=== PATIENT | female | born 1960 | race Caucasian/White ===

== ENCOUNTER 2016-03-02 07:55 | Emergency (ER) | payer OTHER ==
[~2016-03-02] VITALS: Ht 154.9 cm; Wt 54.4 kg
[~2016-03-02 07:55] MED LIST: AMITIZA24 MCG PO; AMITRIPTYLINE100 MG PO; ATORVASTATIN CA40 MG PO; BETHANECHOL CHL10 MG PO; BUSPIRONE10 MG PO; CIPRO 500MG TA500 MG PO; CROMOLYN SODIUM10 ML OPH; HYDROXYZINE HCL25 MG PO; MIRALAX17 GM PO; NEURONTIN300 MG PO; OSPHENA60 MG PO; PROTONIX 40MG T40 MG PO; TRAZODONE100 MG PO; TRAZODONE50 MG PO; ZOFRAN ODT4 MG PO
[2016-03-02 08:26] LABS: ABSOLUTE BASOPHIL COUNT 0 /CUMM (0.0-0.2); ABSOLUTE EOSINOPHIL COUNT 0 /CUMM (0.0-0.7); ABSOLUTE GRANULOCYTE CT 11.3 /CUMM (1.4-6.5); ABSOLUTE LYMPH COUNT 0.9 /CUMM (1.2-3.4); ABSOLUTE MONOCYTE COUNT 0.4 /CUMM (0.10-0.60); BASOPHIL % 0.2 % (0.0-2.0); EOSINOPHIL % 0.1 % (0-5); GRANULOCYTE % 89.5 % (42.2-75.2); HEMATOCRIT 36.5 % (37-47); MEAN CORPUSCULAR HGB 20.8 PG (27.0-31.0); MEAN CORPUSCULAR HGB CONC 31.5 G/DL (33.0-37.0); MEAN PLATELET VOLUME 8.1 FL (7.4-10.4); PLATELET COUNT 148 /CUMM (130-400); RBC DISTRIBUTION WIDTH 14.2 % (11.5-14.5); RED BLOOD CELL CT 5.52 /CUMM (4.20-5.40); WHITE BLOOD CELL COUNT 12.6 /CUMM (4.8-10.8)
--- NOTE | 2016-03-02 08:32 | ED AMS/SEIZURE/WEAK/DIZZY ---
History of Present Illness General Chief Complaint: Altered Mental Status Stated Complaint: ALTERED MENTAL STATUS PER FAMILY Source: patient Exam Limitations: no limitations Vital Signs & Intake/Output Vital Signs & Intake/Output Vital Signs Date Time Temp Pulse Resp B/P Pulse O2 O2 Flow FiO2 Ox Delivery Rate 03/02 1006 96 Room Air 03/02 1005 98.4 98 18 132/72 95 Room Air 03/02 0822 100.0 03/02 0806 94 Room Air 03/02 0800 100.0 107 18 143/69 94 Room Air Allergies Coded Allergies: NO KNOWN ALLERGIES (01/01/13) Reconcile Medications AMITRIPTYLINE HCL (Amitriptyline HCl) 100 MG TAB 1 TAB PO QPM ANXIETY/TOBIAS ( Reported) Atorvastatin Calcium (Lipitor) 40 MG TAB 1 TAB PO DAILY CHOLESTEROL (Reported ) Bethanechol Chloride 10 MG TAB 1 TAB PO QHS ESOPHAGUS (Reported) BUSPIRONE HCL (Buspirone HCl) 10 MG TAB 2 TAB PO TID MENTAL HEALTH (Reported) Clarithromycin (Biaxin) 250 MG TABLET 1 TAB PO BID PNA Cromolyn Sodium (Cromolyn Sodium 10 Ml) 10 ML ALBINA 1 GTT OPH BID ALLERGIES ( Reported) Gabapentin (Neurontin) 300 MG CAP 1 CAP PO BID MENTAL HEALTH (Reported) HYDROXYZINE HCL (Hydroxyzine HCl) 25 MG TAB 1 TAB PO BID PRN ANXIETY ( Reported) Lubiprostone (Amitiza) 24 MCG CAP 1 CAP PO BID CONSTIPATION (Reported) Ospemifene (Osphena) 60 MG TAB 1 TAB PO DAILY VAGINAL TISSUE (Reported) Pantoprazole Sodium (Protonix) 40 MG TAB 1 TAB PO BID GI (Reported) Polyethylene Glycol 3350 (Miralax) 17 GM PWD 17 GM PO DAILY GI (Reported) mix with water, juice, soda, coffee or tea TRAZODONE HCL (Trazodone HCl) 100 MG TAB 1 TAB PO QPM PRN SLEEP (Reported) TRAZODONE HCL (Trazodone HCl) 50 MG TAB 1 TAB PO QAM ANXIETY (Reported) Triage Note: 55 Y/O FEMALE BIBA FROM HOME FOR EVAL OF ALTERED MENTAL STATUS. PER EMS, STATED PT IS "BEING WORKED UP FOR DEMENTIA AND HAS MEMORY LOSS .. TODAY KNOCKED OVER A LAMP". PT ARRIVES ALERT AND ORIENTED X 3 - SPEAKING CLEARLY WITH NO DEFICITS NOTED. PT STATES "MY SAYS I KNOCKED OVER A LAMP, I DONT REMEMBER THAT". PT REPORTS RECENT "MEMORY LOSS AND I FORGET THINGS". ALSO C/O FEELING "TIRED, NO ENERGY". REPORTS DRY COUGH X WEEKS. REPORTS DECREASED APPETITE/PO INTAKE RECENTLY. DENIES PAIN. HX UTI'S BUT UNCLEAR IF SHE FEELS SIMLIAR TO WHEN SHE HAS HAD UTI'S IN THE PAST. TEMP 100.0. Triage Nurses Notes Reviewed? yes HPI: 55 yo female with hx of anxiety and currently being worked up for dementia. she woke feeling "weird", confused this am. having memory problems. hx of similar episodes, hallucinating. mild dysuria, burning with urination. no tx thus far. no weakness or numbness, no headaches, no vomiting, no aphasia. no modifying factors. She has a moderate cough with mild sputum production. She recently quit smoking. Past History Travel History Traveled to [place] past 21 day No Medical History Any Pertinent Medical History? 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 No Review of Systems Review of Systems Constitutional: Reports: see HPI. EENTM: Reports: no symptoms. Respiratory: Reports: see HPI. Cardiovascular: Reports: no symptoms. GI: Reports: no symptoms. Genitourinary: Reports: see HPI. Musculoskeletal: Reports: no symptoms. Skin: Reports: no symptoms. Neurological/Psychological: Reports: see HPI. Hematologic/Endocrine: Reports: no symptoms. Immunologic/Allergic: Reports: no symptoms. All Other Systems: Reviewed and Negative Physical Exam Physical Exam General Appearance: well developed/nourished Comments: Well-developed well-nourished person in no acute distress HEENT: Normal EENT exam, extraocular motion intact, no nystagmus. Pupils equally round and reactive to light. Nose is atraumatic. External auditory canal and Tympanic membranes clear. Pharynx normal. No swelling or edema. Neck: Supple, no lymphadenopathy, normal range of motion without pain or tenderness Back: Nontender, no CVA tenderness. Full range of motion Cardiovascular: Regular rate and rhythms no murmurs, normal JVP Respiratory: Chest nontender. No respiratory distress. Mild crackles and rhonchi noted to the right lower lung Abdomen: Soft, nontender nondistended, no appreciable organomegaly. Normal bowel sounds. No ascites Extremity: No edema, no calf tenderness to palpation, normal and equal pulses. Neuro: Alert oriented x3, motor sensory normal, cranial nerves II through XII grossly intact. Skin: No appreciable rash on exposed skin, skin is warm and dry. Psych: Mood and affect is normal, memory and judgment is normal. Core Measures ACS in differential dx? No CVA/TIA Diagnosis: No Severe Sepsis Present: No Septic Shock Present: No Progress Differential Diagnosis: arrythmia, alcohol intoxication, anemia, benign positional vertigo, CVA/stroke, dehydration, drug intoxication, encephalitis, electrolyte imbalance, GI bleed, hypoglycemia, hypoxia, intracranial Hem., intracranial mass/tumor, labrynthitis, meningitis, Meniere's disease, migraine TOBIAS, multiple sclerosis, pneumonia, postural hypotension, presyncope, post- traumatic vertigo, sepsis, seizure disorder, subarachnoid Hem., UTI/pyelo, vertebrobasilar insuff Plan of Care: Orders Procedure Date/time Status CULTURE,URINE 03/02 809 Active URINALYSIS 03/02 809 Complete COMPREHENSIVE METABOLIC PANEL 03/02 809 Complete CBC WITHOUT DIFFERENTIAL 03/02 809 Complete Laboratory Tests 03/02/16 0810: Anion Gap 12, Estimated GFR 57 L, BUN/Creatinine Ratio 17.0, Glucose 98, Calcium 9.4, Total Bilirubin 0.7, AST 21, ALT 31, Alkaline Phosphatase 68, Total Protein 6.6, Albumin 3.9, Globulin 2.7, Albumin/Globulin Ratio 1.4, CBC w Diff MAN DIFF ORDERED, RBC 5.52 H, MCV 66.0 L, MCH 20.8 L, RDW 14.2, MPV 8.1, Gran % 89.5 H, Lymphocytes % 7.2 L, Monocytes % 3.0, Eosinophils % 0.1, Basophils % 0.2, Absolute Granulocytes 11.3 H, Segmented Neutrophils 76 H, Band Neutrophils 10 H, Absolute Lymphocytes 0.9 L, Lymphocytes 9 L, Monocytes 4, Absolute Monocytes 0.4, Eosinophils 1, Absolute Eosinophils 0, Absolute Basophils 0, Platelet Estimate DECREASED, Hypochromic-Microcytic 1+, PUBS MCHC 31.5 L, Urine Color YEL, Urine Clarity HAZY H, Urine pH 6.0, Ur Specific [place] 1.020, Urine Protein TRACE H, Urine Ketones NEG, Urine Nitrite NEG, Urine Bilirubin NEG, Urine Urobilinogen 0.2, Ur Leukocyte Esterase SMALL H, Ur Microscopic SEDIMENT EXAMINED, Urine RBC 1-3, Urine WBC 1-3 H, Ur Epithelial Cells MOD H, Urine Hemoglobin NEG, Urine Glucose NEG Microbiology 03/02 809 URINE ROUT: Urine Culture - RECD Diagnostic Imaging: Viewed by Me: Radiology Read. Discussed w/RAD: Radiology Read. CXR Impression: PATIENT: PEDRO QUICK PRESENT AGE: 55 PATIENT ACCOUNT NO: [id number] : 56 LOCATION: [facility] ORDERING PHYSICIAN: SUYAPA WAITE SERVICE DATE: 03/02/16 EXAM TYPE: RAD - XRY-CHEST XRAY, PA AND LATERAL EXAMINATION: XR CHEST CLINICAL INFORMATION: Cough and fever COMPARISON: 11/20/2007 TECHNIQUE: PA and lateral views of the chest were obtained. FINDINGS: The lungs are well expanded. There is a patchy airspace opacity in the right mid to lower lung. Left lung is clear. No pleural effusion or pneumothorax. The cardiomediastinal silhouette is within normal limits. No acute osseous abnormality. IMPRESSION: Patchy opacity of the right mid to lower lung suspicious for pneumonia. DICTATED BY: KAT SADLER,CHAR DATE/TIME DICTATED:03/02/16909 BILLET STRAIGHTENER:EAN DATE/TIME TRANSCRIBED:909 Initial ED EKG: none Comments: Treated with 1 L of IV fluid and by mouth Tylenol. Patient reevaluated, she was feeling well. She has a right middle lobe pneumonia and bandemia. Patient is not hypoxic and does not appear confused or altered on my evaluation. She is stable for discharge home with close follow up with primary care doctor return with worsening symptoms, she'll need a repeat chest x-ray next week. She will placed on Biaxin as outpatient. Departure Departure Disposition: HOME OR SELF CARE Condition: Stable Clinical Impression Primary Impression: Pneumonia Qualifiers: Pneumonia type: due to unspecified organism Laterality: right Lung location: middle lobe of lung Qualified Code: J18.9 - Pneumonia, unspecified organism Referrals: LEIGHA NOLAN (PCP/Family) Additional Instructions: Take antibiotics for your infection as directed. Use [id number] multisystem cold medication as needed. Motrin and Tylenol as needed for fever. Drink plenty of fluids. Return or follow-up with your doctor if not better in the next 3-5 days or if you're having continued worsening fevers, nausea, vomiting, shortness of breath, abdominal pain, difficulty swallowing or drinking or worsening flulike illness. Follow-up with your doctor next week for reevaluation and repeat chest x-ray to ensure the pneumonia has resolved. Departure Forms: Customer Survey General Discharge Information Prescriptions: Current Visit Scripts Clarithromycin (Biaxin) 1 TAB PO BID #20 TAB
--- NOTE | 2016-03-02 09:14 | RADIOLOGY REPORT ---
EXAMINATION: XR CHEST CLINICAL INFORMATION: Cough and fever COMPARISON: 11/20/2007 TECHNIQUE: PA and lateral views of the chest were obtained. FINDINGS: The lungs are well expanded. There is a patchy airspace opacity in the right mid to lower lung. Left lung is clear. No pleural effusion or pneumothorax. The cardiomediastinal silhouette is within normal limits. No acute osseous abnormality. IMPRESSION: Patchy opacity of the right mid to lower lung suspicious for pneumonia.
[2016-03-02] MEDS ORDERED: BIAXIN250 MG PO (09:38)
[2016-03-02 10:05] VITALS: BP 132/72
== END 2016-03-02 10:09 ==
LOC: ERH 07:55
PROVIDERS: Physician Assistant Surgical
DX: J18.9 Pneumonia, unspecified organism (principal); Z87.891 Personal history of nicotine dependence; D64.9 Anemia, unspecified
CPT/HCPCS: 81001; 87086; 96360